=== PATIENT | female | born 1940 | race Caucasian/White ===

== ENCOUNTER 2016-06-29 08:18 | Day surgery (SDC) | payer MEDICARE, BC ==
[~2016-06-29 08:18] MED LIST: LIDOCAINE HCL 1% MPF SOL ONE; PROPOFOL 500 MG/50 ML EMU IV ONE
[2016-06-29 11:03] VITALS: BP 172/93; PULSE 84; RESP 18; TEMP 97.7; O2SAT 98
== END 2016-06-29 11:25 | disposition home or self-care (01) | DRG 951 ==
LOC: SURG 08:18
PROVIDERS: ATTEND Surgery
DX: Z12.11 Encounter for screening for malignant neoplasm of colon (principal); K57.30 Diverticulosis of large intestine without perforation or abscess without bleeding; Z86.010 Personal history of colon polyps
CPT/HCPCS: G0105; J2001; J2704